=== PATIENT | female | born 1975 | race Asian ===

== ENCOUNTER 2020-03-21 03:54 | Emergency (ER) | payer OTHER ==
[~2020-03-21] VITALS: Ht 167.6 cm; Wt 63.5 kg
[2020-03-21 04:00] VITALS: BP_SYST 122
--- NOTE | 2020-03-21 04:00 | NUR ---
Patient to ER bed 4 to gown for evaluation. Side rails up. Report given to Katie DUARTE.
--- NOTE | 2020-03-21 04:14 | NUR ---
ER at bedside examining patient.
--- NOTE | 2020-03-21 04:15 | NUR ---
PT C/O OF LEFT EYE PAIN AND SWELLING THAT STARTED YESTERDAY MORNING. PT STATES SHE WOKE UP IN THE MIDDLE OF THE NIGHT FEELING LIKE A NEEDLE WAS POKING HER EYE. PTS EYELID APPEARS TO BE SWOLLEN, AND CONJUNCTIVA IS RED. PT STATES SHE HAD EYE ISSUES ON AND OFF FOR PAST 6 MONTHS AND NOTHING SEEMS TO BE WORKING. PT FEELS LIKE THE AREA AROUND HER EYE FEELS BRUISED.
--- NOTE | 2020-03-21 04:30 | NUR ---
Patient transported to radiology via wheelchair, accompanied by estrella.
[2020-03-21] MEDS ORDERED: KETOROLAC TROMETHAMINE 60 MG/2 ML VIAL IM ONE (05:30)
[2020-03-21] MEDS ORDERED: SULFAMETHOXAZOLE/TRIMETHOPR DS 1 TABLET PO ONE (05:30)
[2020-03-21] MEDS ORDERED: CEPHALEXIN 500 MG CAPSULE PO ONE (05:30)
[2020-03-21 05:50] VITALS: BP_SYST 127
--- NOTE | 2020-03-21 05:50 | NUR ---
Patient given written and verbal discharge instructions and verbalizes understanding. ER MD discussed with patient the results and treatment provided. Patient in stable condition. ID arm band removed. Rx of BACTRIM, CILOXAN, KEFLEX, MOTRIN given. Patient educated on pain management and to follow up with PMD. Pain Scale 2/10. Opportunity for questions provided and answered. Medication side effect fact sheet provided.
== END 2020-03-21 05:50 | disposition home or self-care (01) ==
LOC: SED 03:54
DX: L03.213 Periorbital cellulitis (principal); H10.9 Unspecified conjunctivitis; Z88.5 Allergy status to narcotic agent
CPT/HCPCS: 70480; 96372; 99284; J1885